=== PATIENT | male | born 1985 | race Caucasian/White ===

== ENCOUNTER 2024-05-06 14:38 | Emergency (ER) | payer OTHER ==
[~2024-05-06] VITALS: Ht 177.8 cm; Wt 83.9 kg
[2024-05-06 14:43] VITALS: BP 130/89; TEMP 100.8; O2SAT 100
[2024-05-06] MEDS ORDERED: KETOROLAC TROMETHAMINE INJ 30 MG/ML VIAL IV ONE (16:30)
[2024-05-06] MEDS ORDERED: IV NS 0.9% 1,000 ML BAG IV ONE (16:30)
== END 2024-05-06 16:20 | disposition home or self-care (01) ==
LOC: ER 14:50
DX: R50.9 Fever, unspecified (principal); R51.9 Headache, unspecified; Z53.29 Procedure and treatment not carried out because of patient's decision for other reasons